=== PATIENT | male | born 1985 | race Caucasian/White ===

== ENCOUNTER 2016-07-10 14:08 | Emergency (ER) | payer OTHER | END 2016-07-10 17:53 | disposition home or self-care (01) | LOC: ER 14:08 | DX: G56.21 Lesion of ulnar nerve, right upper limb (principal); G56.01 Carpal tunnel syndrome, right upper limb; G58.8 Other specified mononeuropathies; M25.521 Pain in right elbow; M79.631 Pain in right forearm; M25.531 Pain in right wrist; M79.641 Pain in right hand ==